=== PATIENT | female | born 2005 | race Caucasian/White ===

== ENCOUNTER 2025-02-04 19:40 | Emergency (ER) | payer OTHER ==
[~2025-02-04] VITALS: Ht 162.6 cm; Wt 61.8 kg
[~2025-02-04 19:40] MED LIST: IBUP200C28 PO; NIKK1TAB PO
[2025-02-04 19:48] VITALS: TEMP 98.7
[2025-02-04] MEDS: ONDANSETRON 4MG/2ML VIAL IV ONE (21:12)
[2025-02-04] MEDS: MORPHINE 2 MG/ML 1 ML VIAL IV ONE (21:12)
[2025-02-04 21:16] LABS: BASO # 0.1 10^3/uL (0.0-0.2); BASO % 0.4 % (0.0-1.0); EOS # 0.0 10^3/uL (0.0-0.5); EOS % 0.1 % (0.0-3.0); LYMPH # 2.1 10^3/uL (1.5-5.0); LYMPH % 14.6 % (24.0-44.0); MONO # 1.2 10^3/uL (0.0-0.8); MONO % 8.2 % (2.0-8.0); NEUTROPHILS # 10.8 10^3/uL (1.5-8.5); NEUTROPHILS % 76.3 % (36.0-66.0); PLATELET COUNT, AUTOMATED 366 10^3/uL (150-450)
[2025-02-04] MEDS: MORPHINE 4 MG/ML 1 ML VIAL IV ONE (21:40)
[2025-02-04 21:42] LABS: CALCIUM LEVEL 8.5 MG/DL (8.5-10.1); CARBON DIOXIDE LEVEL 22 MMOL/L (20-31); CHLORIDE LEVEL 104 MMOL/L (98-107); CREATININE FOR GFR 0.64 MG/DL (0.55-1.30); GLOMERULAR FILTRATION RATE > 90.0 (>60); POTASSIUM SERUM 3.8 MMOL/L (3.5-5.1); SODIUM LEVEL 138 MMOL/L (136-145)
[2025-02-04] MEDS ORDERED: HOME MED LIST COMPLETE! XX SCH (23:05)
[2025-02-04 23:30] VITALS: BP 106/56; O2SAT 100
== END 2025-02-04 23:48 | disposition home or self-care (01) ==
LOC: M ED 19:40
DX: O20.0 Threatened abortion (principal); Z79.1 Long term (current) use of non-steroidal anti-inflammatories (NSAID)
CPT/HCPCS: 36415; 76801; 76817; 80048; 84702; 85025; 86850; 86900; 86901; 93976; 96374; 96375; 99284; J2405

== ENCOUNTER → 2025-02-11 | Outpatient (CLI) | payer OTHER | LOC: M LAB 11:26 | PROVIDERS: ATTEND Emergency Medicine | DX: O20.0 Threatened abortion (principal) ==